=== PATIENT | male | born 1955 | race African-American/Black ===

== ENCOUNTER 2019-02-27 06:44 | Emergency (ER) | payer MEDICARE ==
[2019-02-27] MEDS ORDERED: WATER STERILE 10 ML VIAL INJ ONE (06:45)
[2019-02-27] MEDS ORDERED: VECURONIUM BROMIDE FOR INJ 20 MG VIAL IV ONE (06:45)
--- NOTE | 2019-02-27 06:50 | NUR ---
PER THE MEDICAL RESORT AT [facility] THEY ARE SENDING PT TO [facility] ER FOR AMS AND SOB SINCE THIS MORNING STATING PT PULSE WAS 110 BP 185/81 PT NORMALLY AXO 3 PT IS HOSPICE PT WITH NO DNR THEY STATE PT WAS SUPPOSED TO SIGN DNR BUT NEVER GOT AROUND TO IT MEDICAL RESORT STATES PT IS DIALYSIS PT WITH PORT A CATH ACCESS TO RIGHT UPPER CHEST MEDICAL RESORT STATES THEY WERE UNABLE TO GET SPO2 DUE TO PT BEING COLD AND CLAMMY
[2019-02-27] MEDS ORDERED: DEXTROSE 50% SYRINGE 50 ML IV ONE (06:54)
[2019-02-27] MEDS ORDERED: SODIUM CHLORIDE 0.9% 1000ML 1,000 ML ONE ×2 (06:54→07:22)
[2019-02-27] MEDS: DEXTROSE 50% SYRINGE 50 ML IV PRN ×2 (07:11→07:29)
[2019-02-27] MEDS ORDERED: ROCURONIUM BROMIDE 2 ML ONE (07:11)
[2019-02-27] MEDS ORDERED: ETOMIDATE 2 MG/ML 10 ML INJ IV STA (07:13)
[2019-02-27] MEDS ORDERED: ROCURONIUM BROMIDE 10 MG/ML 5ML VIAL IV ONE (07:15)
[2019-02-27] MEDS ORDERED: NOREPINEPHRINE 8 MG/D5W 250 ML 250 ML ONE (07:19)
[2019-02-27] MEDS ORDERED: MIDAZOLAM HCL 2 MG/2 ML VIAL IV STA ×2 (07:21)
[2019-02-27] MEDS ORDERED: MIDAZOLAM HCL 2 MG/2 ML VIAL ONE (07:24)
[2019-02-27] MEDS ORDERED: DEXTROSE 5%/0.9% SOD CHL 1,000 ML IV ONE (07:29)
[2019-02-27] MEDS ORDERED: MIDAZOLAM HCL 25 MG in DEXTROSE 5% 50ML 45 ML IV PRN (07:30)
[2019-02-27] MEDS ORDERED: MIDAZOLAM HCL 25 MG in SODIUM CHLORIDE 0.9% 45 ML IV PRN (07:30)
[2019-02-27] MEDS ORDERED: DEXTROSE 10% 1,000 ML IV SCH (07:45)
[2019-02-27] MEDS ORDERED: DEXTROSE 50% SYRINGE 50 ML IV PRN (07:45)
[2019-02-27] MEDS ORDERED: SODIUM CHLORIDE 0.9% 1000ML 1,000 ML IV SCH ×4 (07:45→09:30)
[2019-02-27] MEDS ORDERED: DEXTROSE 5%/0.9% SOD CHL 1,000 ML IV SCH (07:45)
[2019-02-27] MEDS ORDERED: VANCOMYCIN 1GM/NS 250 ML 250 ML IV STA (07:51)
[2019-02-27] MEDS ORDERED: CEFEPIME HCL 1 GM VIAL IV SCH (08:00)
--- NOTE | 2019-02-27 08:02 | NUR ---
RT called for ABG.
[2019-02-27 08:14] LABS: BASOPHILS # (AUTO) 0.1 (0.0-0.1); BASOPHILS % 0.3 % (0.0-1.0); EOSINOPHILS % 0.1 % (0.0-6.0); HEMATOCRIT 23.9 % (38.2-49.6); LYMPHOCYTES # (AUTO) 0.9 (1.0-3.2); LYMPHOCYTES % 4.1 % (18.0-39.1); MEAN CORPUSCULAR HEMOGLOBIN 27.1 pg (28-32); MEAN CORPUSCULAR HGB CONC 31.4 g/dL (31-35); MEAN CORPUSCULAR VOLUME 86.3 fL (81-99); MONOCYTES # (AUTO) 0.6 (0.2-0.8); MONOCYTES % 2.6 % (4.4-11.3); NEUTROPHILS # (AUTO) 20.6 (2.1-6.9); NEUTROPHILS % 91.5 % (38.7-80.0); PLATELET COUNT 263 x10e3/uL (140-360); RED BLOOD COUNT 2.77 x10e6/uL (4.3-5.7); RED CELL DISTRIBUTION WIDTH 19.5 % (11.7-14.4)
[2019-02-27 08:19] LABS: HEMOGLOBIN 7.5 g/dL (14.0-18.0)
[2019-02-27 08:29] LABS: ABG HCO3 16 mmol/L (23-28); ABG PCO2 51 mmHg (41-51); ABG PH 7.11 (7.31-7.41); ABG PO2 150 mmHg (80-105)
--- NOTE | 2019-02-27 08:30 | NUR ---
SIMS CATHETER INSERTION WITH CORE TEMP SENSOR PER MD ORDER DONE WITH NO ADVERSE REACTIONS PT HAS APPROX 100 CC URINE OUTPUT DARK YELLOW URINE NOTED
[2019-02-27 08:33] LABS: ALBUMIN 1.3 g/dL (3.5-5.0); ALBUMIN/GLOBULIN RATIO 0.3 (0.8-2.0); CALCIUM 7.3 mg/dL (8.4-10.2); CREATININE, SERUM 4.39 mg/dL (0.72-1.25); MAGNESIUM 2.3 MG/DL (1.3-2.1); PHOSPHORUS 8.9 MG/DL (2.3-4.7)
--- NOTE | 2019-02-27 08:49 | Diagnostic Imaging Report ---
Examination: Single AP view of the chest. COMPARISON: None. INDICATION: Intubated DISCUSSION: Endotracheal tube tip projects approximately 4.4 cm above the noé. Right-sided chest port catheter tip terminates at the superior cavoatrial junction. Left subclavian approach implantable cardiac device body projects over the left axilla, with leads projecting over the right atrium. Moderate enlargement of the cardiac silhouette with prominence of the perihilar pulmonary interstitial markings. Small left pleural effusion is suspected. Low lung volumes. No acute osseous abnormality. IMPRESSION: Endotracheal tube tip projects approximately 4.4 cm above the noé. Additional support apparatus as above. Cardiomegaly with interstitial pulmonary edema, accentuated by low lung volumes. Retrocardiac airspace disease likely represents atelectasis, though aspiration is an additional consideration in the appropriate clinical setting. Signed by: Dr. Venkatesh Paige M.D. on 02/27/2019 8:46 AM
[2019-02-27] MEDS ORDERED: CEFEPIME 1GM/NS 0.9% 50 ML 50 ML IV SCH (09:00)
[2019-02-27 09:27] LABS: BILIRUBIN,URINE SMALL (NEGATIVE); CLARITY,URINE CLOUDY (CLEAR); COLOR,URINE AMBER (YELLOW); KETONES,URINE TRACE (NEGATIVE); LEUKOCYTE ESTERASE ,URINE NEGATIVE (NEGATIVE); NITRITE,URINE NEGATIVE (NEGATIVE); PROTEIN,URINE DIPSTICK TRACE (NEGATIVE); URINE UROBILINOGEN 0.2 mg/dL (0.2 - 1)
[2019-02-27 09:46] LABS: BACTERIA,URINE FEW /HPF; EPITHELIAL CELLS,URINE RARE /LPF
[2019-02-27 11:32] VITALS: BP 104/69
--- NOTE | 2019-02-27 11:33 | NUR ---
The Compliance Intern spoke to Gibson Annette at [phone], who runs the shelter where the patient resides, and he informed me that the patient signed himself in the shelter and he has no listed family members because he has no relationship with his children. There is no POA listed at the shelter or [facility].
--- NOTE | 2019-02-27 11:42 | NUR ---
REPORT GIVEN TO [facility] FOR TRANSPORT TO [facility]; PT LOADED ONTO [facility] STRETCHER WITHOUT INCIDENT; SHAD NU[facility]EZ FROM [facility] NOTIFIED [facility] IS ON THE WAY; PT TRANSPORTED WITH PAPERWORK AND CD FOR CT
--- NOTE | 2019-02-27 11:48 | Diagnostic Imaging Report ---
EXAM: CT of the abdomen and pelvis WITH contrast HISTORY: elevated LFTs, sick, shortness of breath, provided history of end stage renal disease and colon cancer COMPARISON: None. TECHNIQUE: The abdomen and pelvis were scanned utilizing a multidetector helical scanner. Coronal and sagittal reformats are provided. PROTOCOL: Routine IV CONTRAST: 100 cc of Isovue-370. ORAL CONTRAST: None, which limits sensitivity and specificity of the exam. RADIATION DOSE: Total DLP: 826.93 mGy*cm Estimated effective dose: (DLP x 0.015 x size factor) Dose modulation, iterative reconstruction, and/or weight based adjustment of the mA/kV was utilized to reduce the radiation dose to as low as reasonably achievable. COMPLICATIONS: None FINDINGS: Beam hardening artifacts and soft tissue attenuation partially limits the evaluation.. LOWER THORAX: Bilateral lower lobe dependent and medial volume loss and patchy airspace opacities. Trace right effusion. HEPATOBILIARY: Innumerable, ill-defined, hypodensities throughout the liver, the largest measures up to about 6.2 cm near the inferior aspect of the right lobe. No biliary dilation. No calcified gallstone. SPLEEN: No splenomegaly. PANCREAS: No focal masses or ductal dilatation. ADRENALS: No discrete adrenal nodule. KIDNEYS/URETERS: No hydronephrosis or stones. An ill-defined, indeterminate 2.7 cm hypodensity at the anterior interpolar region of the right kidney, contiguous with adjacent soft tissue density/fluid. PELVIC ORGANS/BLADDER: The urinary bladder is decompressed via a Santiago catheter. GI TRACT: The stomach is distended with both air and fluid. Large volume distal colonic fecal burden. In the right hemiabdomen, and ill-defined conglomeration of bowel versus soft tissue density about curvilinear radiopaque suture PERITONEUM / RETROPERITONEUM: Prominent fat stranding and soft tissue densities versus intermediate to high density fluid along the lateral aspect of the right abdomen and pelvis with intermixed numerous small foci of air. The soft tissue densities/fluid also extends posterior to the right kidney and separately contiguous with the inferior aspect of the right kidney extending into the right hemiabdomen. LYMPH NODES: Multiple enlarged lymph nodes, enrollment eligibility representative examples include: 1.7 cm right subdiaphragmatic (axial image 14), 1.6 cm gastrohepatic, 1.5 cm periaortic (series 2 image 43), 2.1 cm mildly hypodense periaortic (series 2 image 44), and a 1.6 cm right external iliac node (series 2 image 77). VESSELS: Diffuse scattered atherosclerotic vascular calcifications. A right femoral venous catheter with small foci of air in the adjacent veins, but this is not in close proximity to the right abdominal/pelvic air. BONES: No aggressive osseous lesion or acute fracture. SOFT TISSUES: Periumbilical lobulated soft tissue density 4.9 cm (AP) x 5.5 cm (ML) x 8.4 cm (CC). Multiple round densities within the superficial adipose tissue of the abdomen, this could be secondary to injections and/or additional foci of metastases. The right iliopsoas muscle is diffusely slightly enlarged and hypodense, portions of it contiguous with the described right hemiabdomen/pelvis ill-defined soft tissue densities versus fluid. IMPRESSION: 1. Findings compatible with local recurrence of colon cancer about the surgical sutures in the right hemiabdomen with diffuse metastatic disease, including: The liver, lymph nodes, mesenteric/omental, and ventral abdominal wall. The findings are also worrisome for an associated perforation resulting in intermediate to high density fluid and air predominantly within the right hemiabdomen/pelvis. 2. Bilateral lower lobe atelectasis, pneumonia, and/or aspiration. Discussed with Dr. Pardo via phone on February 27, 2019 at 1145. The provider verbalizes an understanding. Signed by: Dr. Prince Mai D.O., M.M.M. on 02/27/2019 11:45 AM
--- NOTE | 2019-02-27 11:49 | NUR ---
SHAD NU[facility] AT [facility] CALLED AND NOTIFIED THAT PT HAS PNEUMO PERITINEUM WITH PERFORATION AND TO ORDER FLAGYL [address] FOUNTAIN; [facility] ALSO NOTIFIED PRIOR TO DEPARTURE
[2019-02-27] MEDS ORDERED: IOPAMIDOL 370 MG/ML 200 ML INFUS..BTL INJ ONE (15:40)
[2019-02-27] MEDS ORDERED: SODIUM CHLORIDE 0.9% 50ML 50 ML ONE (15:40)
== END 2019-02-27 12:10 | disposition other institution (70) ==
LOC: ER 06:44
DX: R41.82 Altered mental status, unspecified (principal); R41.0 Disorientation, unspecified; R11.0 Nausea; R53.1 Weakness; C18.9 Malignant neoplasm of colon, unspecified; J98.11 Atelectasis; I51.7 Cardiomegaly
CPT/HCPCS: 31500; 36415; 36556; 51700; 71045; 74177; 80053; 81001; 82805; 82948; 83605; 83735; 84100; 85025; 87040; 87071; 87086; 87205; 93005; 94002; 99285; J0692; J2250 ×2; J3370; J7030; J7042; J7799; Q9967; 36555